=== PATIENT | male | born 1945 | race Caucasian/White ===

== ENCOUNTER 2022-06-21 15:05 | Inpatient (IN) ==
[2022-06-21 15:36] LABS: PCO2 Arterial 55 mmHg (35-45); PO2 Arterial 107 mmHg (80-100)
[2022-06-21] MEDS ORDERED: Albuterol 2.5mg/3 ml (0.083%) NEB.SOLN INH ONE ×2 (15:56→20:58)
[2022-06-21 16:21] LABS: ABS Lymphocytes 0.6 10^3/ul (1.0-4.8); ABS Monocytes 0.2 10^3/ul (0-0.8); Hematocrit 35 % (42-52); Hemoglobin 11.6 g/dL (14.0-18.0); Lymphocyte % 16.7 %; Mean Corpuscular HGB Conc 33 g/dL (31-36); Mean Corpuscular Hemoglobin 30 pg (27-31); Mean Corpuscular Volume 91 fL (80-94); Mean Platelet Volume 8.9 fL (7.4-10.4); Nucleated Red Blood Cells % 0.1; Platelet Count 170 10^3/uL (150-450); Red Blood Count 3.87 10^6 /uL (4.18-5.48); Red Cell Distribution Width 15 % (10-15); White Blood Count 3.8 10^3/uL (3.5-10.8)
[2022-06-21 17:08] LABS: Albumin 3.4 g/dL (3.2-5.2); Albumin/Globulin Ratio 1.1 (1-3); Calcium 8.3 mg/dL (8.6-10.3); Creatinine, Serum 0.89 mg/dL (0.67-1.17); Globulin 3.1 g/dL (2-4); Potassium 4.9 mmol/L (3.5-5.0); Total Bilirubin 0.3 mg/dL (0.2-1.0); Total Protein 6.5 g/dL (6.4-8.9); eGFR CKD-EPI 88.3 (>60)
[2022-06-21 18:11] LABS: High Sensitivity Troponin 1 Hr 71 pg/mL (<20)
[2022-06-21] MEDS ORDERED: Dextrose 50% Syringe 50 ml 25 GM/50 ML SYRINGE IV PUSH PRN (20:27)
[2022-06-21 21:35] LABS: C Reactive Protein 84.89 mg/L (<8.01)
[2022-06-21] MEDS: methylPREDNISolone SOD SUCC 40 mg/ml 1 ml VIAL IV SCH (23:35)
[2022-06-21] MEDS: Carbidopa/Levodop 25/100 MG TAB PO SCH (23:35)
[2022-06-21] MEDS: Enoxaparin 40 MG/0.4 ML SYR SUBCUT SCH (23:36)
[2022-06-22] MEDS ORDERED: cefTRIAXone 1 gm/50 mL D5W 1 GM/50 ML BAG IV SCH (06:00)
[2022-06-22] MEDS: Albuterol 2.5mg/3 ml (0.083%) NEB.SOLN INH SCH ×5 (06:33→19:12)
[2022-06-22 07:41] LABS: ABS Lymphocytes 0.9 10^3/ul (1.0-4.8); ABS Monocytes 0.4 10^3/ul (0-0.8); ABS Neutrophils 5.7 10^3/ul (1.5-7.7); Hematocrit 36 % (42-52); Lymphocyte % 12.8 %; Mean Corpuscular HGB Conc 34 g/dL (31-36); Mean Corpuscular Hemoglobin 31 pg (27-31); Mean Corpuscular Volume 91 fL (80-94); Platelet Count 162 10^3/uL (150-450); Red Blood Count 3.94 10^6 /uL (4.18-5.48); Red Cell Distribution Width 15 % (10-15); White Blood Count 7.1 10^3/uL (3.5-10.8)
[2022-06-22 08:24] LABS: Calcium 8.7 mg/dL (8.6-10.3); Creatinine, Serum 1.02 mg/dL (0.67-1.17); Potassium 5.4 mmol/L (3.5-5.0); eGFR CKD-EPI 75.7 (>60)
[2022-06-22] MEDS ORDERED: SPIRIVA Respimat (tiotropium) 2.5 mcg/inh Inhaler INH SCH (09:00)
[2022-06-22] MEDS ORDERED: SODIUM ZIRCONIUM CYCLOSILICATE 10 GM PACKET PO ONE (09:44)
[2022-06-22] MEDS: Carbidopa/Levodop 25/100 MG TAB PO SCH ×2 (09:56→20:09)
[2022-06-22] MEDS: Aspirin EC 81 mg TAB.EC (enteric coated) PO SCH (09:56)
[2022-06-22] MEDS: methylPREDNISolone SOD SUCC 40 mg/ml 1 ml VIAL IV SCH ×2 (09:58→20:09)
[2022-06-22] MEDS: Tiotropium Brom/Olodaterol MDI INH SCH (10:05)
[2022-06-22] MEDS: Azithromycin 500 mg/250 ml NS 500 MG/250 ML BAG IVPB SCH (10:23)
[2022-06-22] MEDS ORDERED: Lactated Ringers 1000 ml BAG 1,000 ML IV ONE (12:52)
[2022-06-22] MEDS: Cefepime 1 GM in Dextrose 1 GM/50 ML BAG IV SCH (18:23)
[2022-06-22] MEDS: Enoxaparin 40 MG/0.4 ML SYR SUBCUT SCH (20:10)
[2022-06-22] MEDS ORDERED: Insulin GLARGINE 100 un/ml 10 ml VIAL SUBCUT SCH (21:00)
[2022-06-23] MEDS: Albuterol 2.5mg/3 ml (0.083%) NEB.SOLN INH SCH ×5 (02:14→18:58)
[2022-06-23] MEDS: Cefepime 1 GM in Dextrose 1 GM/50 ML BAG IV SCH ×2 (04:40→17:58)
[2022-06-23 04:52] LABS: ABS Lymphocytes 0.7 10^3/ul (1.0-4.8); ABS Monocytes 0.5 10^3/ul (0-0.8); ABS Neutrophils 9.3 10^3/ul (1.5-7.7); Hematocrit 35 % (42-52); Hemoglobin 11.1 g/dL (14.0-18.0); Lymphocyte % 6.7 %; Mean Corpuscular HGB Conc 32 g/dL (31-36); Mean Corpuscular Hemoglobin 29 pg (27-31); Mean Corpuscular Volume 91 fL (80-94); Mean Platelet Volume 9.5 fL (7.4-10.4); Platelet Count 171 10^3/uL (150-450); Red Blood Count 3.81 10^6 /uL (4.18-5.48); Red Cell Distribution Width 15 % (10-15); White Blood Count 10.5 10^3/uL (3.5-10.8)
[2022-06-23 05:08] LABS: Calcium 8.4 mg/dL (8.6-10.3); Creatinine, Serum 0.92 mg/dL (0.67-1.17); Potassium 4.4 mmol/L (3.5-5.0); eGFR CKD-EPI 85.7 (>60)
[2022-06-23] MEDS: Azithromycin 500 mg/250 ml NS 500 MG/250 ML BAG IVPB SCH (06:44)
[2022-06-23] MEDS: Tiotropium Brom/Olodaterol MDI INH SCH (08:02)
[2022-06-23] MEDS: methylPREDNISolone SOD SUCC 40 mg/ml 1 ml VIAL IV SCH (09:57)
[2022-06-23] MEDS: Carbidopa/Levodop 25/100 MG TAB PO SCH ×2 (10:03→21:11)
[2022-06-23] MEDS: Nicotine PATCH 14 MG/24 HR PATCH TRANSDERM SCH (10:04)
[2022-06-23] MEDS: Aspirin EC 81 mg TAB.EC (enteric coated) PO SCH (10:04)
[2022-06-23] MEDS ORDERED: Insulin GLARGINE 100 un/ml 10 ml VIAL SUBCUT SCH (21:00)
[2022-06-23] MEDS: Enoxaparin 40 MG/0.4 ML SYR SUBCUT SCH (21:12)
[2022-06-24] MEDS: Albuterol 2.5mg/3 ml (0.083%) NEB.SOLN INH SCH ×4 (01:13→15:06)
[2022-06-24] MEDS: Cefepime 1 GM in Dextrose 1 GM/50 ML BAG IV SCH (05:31)
[2022-06-24 05:51] LABS: ABS Monocytes 0.9 10^3/ul (0-0.8); ABS Neutrophils 8.4 10^3/ul (1.5-7.7); Hematocrit 36 % (42-52); Hemoglobin 11.7 g/dL (14.0-18.0); Mean Corpuscular HGB Conc 33 g/dL (31-36); Mean Corpuscular Hemoglobin 29 pg (27-31); Mean Corpuscular Volume 90 fL (80-94); Mean Platelet Volume 9.4 fL (7.4-10.4); Platelet Count 182 10^3/uL (150-450); Red Blood Count 3.98 10^6 /uL (4.18-5.48); Red Cell Distribution Width 15 % (10-15); White Blood Count 11.4 10^3/uL (3.5-10.8)
[2022-06-24 06:13] LABS: Calcium 8.6 mg/dL (8.6-10.3); Creatinine, Serum 0.83 mg/dL (0.67-1.17); Potassium 4.1 mmol/L (3.5-5.0); eGFR CKD-EPI 90.1 (>60)
[2022-06-24] MEDS: Tiotropium Brom/Olodaterol MDI INH SCH (07:21)
[2022-06-24] MEDS: Nicotine PATCH 14 MG/24 HR PATCH TRANSDERM SCH (08:01)
[2022-06-24] MEDS: Aspirin EC 81 mg TAB.EC (enteric coated) PO SCH (08:05)
[2022-06-24] MEDS: Carbidopa/Levodop 25/100 MG TAB PO SCH (08:05)
[2022-06-24 10:22] LABS: C Reactive Protein 16.4 mg/L (<8.01)
[2022-06-24 10:47] VITALS: BP 123/77
== END 2022-06-24 13:40 | disposition home or self-care (01) | DRG 189 ==
LOC: ED 15:05 → EDHOLD 20:23 → MED 06-22 16:28
PROVIDERS: ADMIT Student in an Organized Health Care Education/Training Program; ATTEND Student in an Organized Health Care Education/Training Program